=== PATIENT | male | born 1970 | race Caucasian/White ===

== ENCOUNTER 2016-12-17 10:02 | Emergency (ER) | payer BC, OTHER ==
[2016-12-17] MEDS ORDERED: Sodium Chloride 0.9% 10 ML Syringe FLUSH PRN (10:14)
[2016-12-17] MEDS ORDERED: Iopamidol 612 MG/ML 150 ML Bottle IVPUSH ONE (10:14)
[2016-12-17] MEDS: Sodium Chloride 0.9% 10 ML Syringe FLUSH PRN ×2 (10:41→10:48)
[2016-12-17] MEDS ORDERED: HYDROmorphone 1 MG/ML Syringe ONE (11:11)
[2016-12-17] MEDS ORDERED: Lactated Ringers 1,000 ML ONE (11:17)
--- NOTE | 2016-12-17 11:20 | CT ---
CT cervical spine Technique: Multiple axial sections were obtained from above C1 inferiorly to the top of T2. Reconstructed sagittal and coronal images were reviewed. Comparison: No previous study. Findings: Mastoid sinuses and middle ear cavities are clear. Posterior skull base is intact. Vertebral bodies and posterior arches are intact. No fracture is seen. Moderate left-sided neural foraminal stenosis is noted at C6-7. Mild right-sided neural foraminal stenosis noted at C6-7. Mild right-sided neural foraminal stenosis noted at C3-4. Other neural foramina are patent. Mild degenerative change is noted between the dens and anterior arch of C1. Moderate disc space narrowing noted at C6-7. Mild disc space narrowing of C5-6. Anterior osteophytes are seen within the cervical spine most prominent C5-6 and C6-7. Mild degenerative spurring is noted within the uncovertebral joints most prominent at at C6-7 on the left side. No abnormal subluxation is seen. Mild scattered degenerative apophyseal change is seen. Impression: 1. Scattered degenerative change as noted above. 2. No acute fracture or abnormal subluxation is seen. Diagnostic code #2
--- NOTE | 2016-12-17 11:28 | CT ---
Head CT Technique: Multiple axial sections through the brain were obtained. Intravenous contrast was not utilized. Comparison: No previous intracranial imaging. Findings: Ventricles along the basal cisterns and sulci over convexities are within normal limits for the patient's age. No abnormal parenchymal densities are seen. No evidence of intracranial hemorrhage. No midline shift or mass effect is seen. Bone window settings were reviewed which shows the visualized sinuses to appear clear. No acute calvarial abnormality is seen. Impression: 1. No acute intracranial abnormality is seen. No skull fracture is identified. Diagnostic code #1
--- NOTE | 2016-12-17 11:31 | CT ---
CT lumbar spine Technique: Multiple axial sections were obtained through the lumbar spine. Reconstructed sagittal and coronal images were reviewed. Comparison: No previous study. Findings: Vertebral body heights and disc spaces are maintained. Vertebral bodies and posterior arches are intact. No fracture is seen. Minimal scattered endplate osteophytes are seen. Slight circumferential disc bulge is seen noted at L2-3. No traumatic disc herniation is seen. No abnormal subluxation is seen on the reconstructed sagittal images. Impression: 1. Circumferential disc bulge at L2-3. 2. Mild degenerative change. 3. No acute fracture or abnormal subluxation is seen on CT study of the lumbar spine. Diagnostic code #2
--- NOTE | 2016-12-17 11:35 | CT ---
CT chest Technique: Multiple axial sections were obtained from above the lung apices inferiorly through the lung bases. Intravenous contrast was utilized. Comparison: No previous chest imaging. Findings: Mediastinum and hilar regions show no adenopathy or mass. No pericardial thickening is seen. No axillary adenopathy is identified. Lungs are clear. No pulmonary contusion is seen. No pleural effusions or pneumothorax is identified. Bone window settings were reviewed which shows no discrete rib fracture. Vertebral body heights are maintained within the thoracic spine. Reconstructed sagittal images shows the sternum to be intact. Impression: 1. Nothing acute is identified on CT study of the chest. Diagnostic code #1 CT abdomen and pelvis Technique: Multiple axial sections were obtained from above the dome of the diaphragm inferiorly through the pubic symphysis. Intravenous contrast was utilized. No oral contrast has been given. Comparison: No previous abdominal or pelvic imaging. Findings: Liver shows no focal parenchymal abnormality. Spleen appears within normal limits. Adrenal glands show no nodule. Cyst is noted within the upper right kidney measuring 1.3 cm. Cyst is noted within the mid to lower left kidney measuring about 7 mm. Additional cyst is noted within the lower left kidney measuring 1.1 cm. No additional abnormality is seen within the kidneys. Pancreas is within normal limits. Gallbladder shows no calcified gallstones. Aorta shows no aneurysmal dilatation. No retroperitoneal adenopathy or mesenteric abnormalities are seen. No pelvic mass or adenopathy is seen. No free fluid or inflammatory change is seen within the abdomen or pelvis. No bowel dilatation is seen. Impression: 1. Incidental small cysts within both kidneys. 2. Nothing acute is identified on CT study of the abdomen and pelvis. Diagnostic code #2
--- NOTE | 2016-12-17 12:21 | CR ---
Left forearm: Two views of the left forearm were obtained. Comparison: No previous study. No fracture or other bony abnormality is seen. Impression: 1. No abnormality is identified on two-view left forearm study. Diagnostic code #1
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
[2016-12-17 14:26] VITALS: BP 138/72
== END 2016-12-17 14:21 ==
LOC: JD.ED 10:02
DX: S50.12XA Contusion of left forearm, initial encounter (principal); S30.1XXA Contusion of abdominal wall, initial encounter; S20.212A Contusion of left front wall of thorax, initial encounter; S00.03XA Contusion of scalp, initial encounter; S00.01XA Abrasion of scalp, initial encounter; Z90.49 Acquired absence of other specified parts of digestive tract; Z87.891 Personal history of nicotine dependence; Z88.8 Allergy status to other drugs, medicaments and biological substances; V89.2XXA Person injured in unspecified motor-vehicle accident, traffic, initial encounter; Y92.488 Other paved roadways as the place of occurrence of the external cause; Y99.0 Civilian activity done for income or pay
CPT/HCPCS: 36415; 70450; 71260; 72125; 72131; 73090; 74177; 80053; 80306; 81001; 83690; 85025; 96361; 96374; 99285; G0480; J1170; J7050; J7120; Q9967; 99284

== ENCOUNTER 2018-01-11 17:21 | Emergency (ER) | payer BC, OTHER ==
[2018-01-11 17:29] VITALS: BP 147/89
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
[2018-01-11] MEDS ORDERED: Alum Hydrox/Mag Hydrox/Simeth 30 ML, Lidocaine 2% 15 ML PO ONE ×2 (17:38)
[2018-01-11] MEDS ORDERED: Aspirin 81 MG Tab.Chew PO ONE (17:38)
--- NOTE | 2018-01-12 06:43 | CR ---
Chest: Two views of the chest were obtained. Comparison: No prior chest x-ray, prior chest CT of 12/17/16 is available. Findings: Mediastinum and hilar regions appear within normal limits. Lungs are clear. Bony structures are unremarkable. Impression: 1. Nothing acute is appreciated on two-view chest x-ray. Diagnostic code #1
== END 2018-01-11 21:33 | disposition home or self-care (01) ==
LOC: JD.ED 17:21
DX: R07.89 Other chest pain (principal); Z88.8 Allergy status to other drugs, medicaments and biological substances
CPT/HCPCS: 36415; 71046; 80053; 81001; 82553; 84484; 85007; 85027; 85379; 86140; 93005; 99285; A9270; 93010; 99284